=== PATIENT | female | born 1970 | race Caucasian/White ===

== ENCOUNTER → 2018-02-22 15:48 | Outpatient (CLI) | payer BC, SELFPAY ==
--- NOTE | 2018-02-22 | EMB_PTH ---
PATIENT: M[place] RIVER LOC: [facility] U#:[id number] AGE/SX: 55/F ROOM: RE02/22/[address]: JENNIE Barker : 1970 BED: DIS: SPEC #: [id number] RECD: 02/22/18 15:35 STATUS: TRESSA ADELITA #: [id number] FRANCIA: 02/22/18 00:[address]: Sachi Miller NP DEPT: SURGICAL PATHOLOGY RECD BY: Myke Bronson ENTERED: 02/23/18 08:49 SP TYPE: ENDOM BX/C BARBARA DR: Dr. Bryant Vincent MD Tissues: Endometrium, NOS Procedures: Surgery Specimen Level IV HEADER OPERATION: Endometrial biopsy PRE-OP DIAGNOSIS: Abnormal uterine bleeding TISSUE SUBMITTED: Endometrial biopsy MICROSCOPIC DIAGNOSIS Endometrial biopsy: Scant superficial fragments of benign endometrial tissue and blood clots. Desquamated benign endocervical epithelial cells. See comment. SJ:dedrick 02/24/18 COMMENT Clinical correlation and appropriate follow up are necessary. Repeat biopsy is suggested if clinically indicated. MICROSCOPIC DESCRIPTION Slides are reviewed. GROSS DESCRIPTION Received is one container labeled with the patient's name and not further designated. The specimen consists of multiple fragments of hemorrhagic soft tissue that in aggregate measure 1 x 0.5 x 0.1 cm. The specimen is totally submitted in one cassette. / JOSEE:dedrick 02/23/18 TC:4 CPT: 80388
[2018-02-28 14:39] LABS: HPV APTIMA, High Risk Negative (Negative)
== END ==
PROVIDERS: Family Provider Internal Medicine; PCP Internal Medicine; Referring Provider Nurse Practitioner Women's Health; Visit Provider Nurse Practitioner Women's Health
DX: N93.9 Abnormal uterine and vaginal bleeding, unspecified (principal); Z12.4 Encounter for screening for malignant neoplasm of cervix
CPT/HCPCS: 88175; 88305; G0145

== ENCOUNTER → 2018-03-03 12:45 | Outpatient (CLI) | payer BC, SELFPAY ==
--- NOTE | 2018-03-03 12:48 | US_ITS ---
STUDY: ULTRASOUND OF THE FEMALE PELVIS - COMPLETE REASON FOR EXAM: Female, 48 years old. MENORRHAGIA X 2 MONTHS TECHNIQUE: Transvaginal and endovaginal COMPARISON: None. FINDINGS: The uterus is anteverted and is in a midline position. The uterus measures 2.6 x 6.8 x 5.4 cm. Normal uterine cervix. The endometrium measures 13 mm in thickness, and is hyperechoic. There is no demonstrated endometrial mass. Fibroids in uterus measuring 18 x 21 and 17 mm. Another fibroid measures 13 x 8 x 8 mm 15 x 11 x 11 mm. I.U.D. - The patient does not have an I.U.D. The right ovary is visualized. The right ovary measures 2.9 x 3.2 x 1.7 cm. Prominent right ovarian follicle measuring 20 x 16 mm. There is no visualized right adnexal mass or complex lesion. There is normal arterial and normal venous vascularity. The left ovary is visualized. The left ovary measures 3.7 x 3.7 x 1.6 cm. There is no left ovarian cyst or ovarian mass. There is no visualized left adnexal mass or complex lesion. There is normal arterial and normal venous vascularity. There is minimal fluid in the cul-de-sac. US/Pelvic (Non ) IMPRESSION: Fibroid uterus Electronically Signed: Moises Keith MD at 22:33 EDT , Service support ,
--- NOTE | 2018-03-03 12:48 | US_ITS ---
STUDY: ULTRASOUND OF THE FEMALE PELVIS - COMPLETE REASON FOR EXAM: Female, 48 years old. MENORRHAGIA X 2 MONTHS TECHNIQUE: Transvaginal and endovaginal COMPARISON: None. FINDINGS: The uterus is anteverted and is in a midline position. The uterus measures 2.6 x 6.8 x 5.4 cm. Normal uterine cervix. The endometrium measures 13 mm in thickness, and is hyperechoic. There is no demonstrated endometrial mass. Fibroids in uterus measuring 18 x 21 and 17 mm. Another fibroid measures 13 x 8 x 8 mm 15 x 11 x 11 mm. I.U.D. - The patient does not have an I.U.D. The right ovary is visualized. The right ovary measures 2.9 x 3.2 x 1.7 cm. Prominent right ovarian follicle measuring 20 x 16 mm. There is no visualized right adnexal mass or complex lesion. There is normal arterial and normal venous vascularity. The left ovary is visualized. The left ovary measures 3.7 x 3.7 x 1.6 cm. There is no left ovarian cyst or ovarian mass. There is no visualized left adnexal mass or complex lesion. There is normal arterial and normal venous vascularity. There is minimal fluid in the cul-de-sac. US/Transvaginal Non- IMPRESSION: Fibroid uterus Electronically Signed: Moises Keith MD at 22:33 EDT , Service support ,
== END ==
PROVIDERS: Family Provider Internal Medicine; PCP Internal Medicine; Referring Provider Obstetrics & Gynecology; Visit Provider Obstetrics & Gynecology
DX: N92.0 Excessive and frequent menstruation with regular cycle (principal); D25.9 Leiomyoma of uterus, unspecified
CPT/HCPCS: 76830; 76856; 93976

== ENCOUNTER → 2018-03-30 11:54 | Outpatient (CLI) | payer BC, SELFPAY ==
--- NOTE | 2018-03-30 11:56 | BI_ITS ---
MAMMOGRAPHY - BILATERAL SCREENING REASON FOR EXAM: Female, 48 years old. Routine annual screening examination. PERTINENT HISTORY: Non-contributory. TECHNIQUE: Digital bilateral breast susy (3D mammographic acquisition) in the CC and MLO projections. 2-D mediolateral oblique (MLO) and craniocaudad (CC) views of both breasts were obtained. CAD: Full Field Digital Mammography with Computer Added Detection was performed. COMPARISON: Comparison is made with prior outside examination dated September 03, 2016. FINDINGS: Breast Composition: The breasts are extremely dense, which lowers the sensitivity of mammography. There are no dominant masses or suspicious calcifications. No other significant abnormalities are identified. There has been no significant change since the prior study. BI/SCREENING MAMM (CAD), BILAT IMPRESSION: Stable bilateral screening mammogram. Yearly follow-up mammogram recommended. (A) ASSESSMENT CATEGORY: BIRADS Category 1: Negative. A letter regarding these results will be sent to the patient by the facility within 30 days. Approximately 10% of breast cancers are not detected by mammography. A normal mammogram should not delay biopsy of a clinically suspicious abnormality. [id number] Electronically Signed: Emanuel Ramos MD at 11:28 EST Tel [phone], Service support ,
== END ==
PROVIDERS: Family Provider Internal Medicine; PCP Internal Medicine; Referring Provider Obstetrics & Gynecology; Visit Provider Obstetrics & Gynecology
DX: Z12.31 Encounter for screening mammogram for malignant neoplasm of breast (principal)
CPT/HCPCS: 77063; 77067

== ENCOUNTER → 2019-02-26 12:56 | Outpatient (CLI) | payer BC, SELFPAY ==
[2019-02-26 08:07] VITALS: BMI 25.2
[2019-03-01 16:03] LABS: HPV APTIMA, High Risk Negative (Negative)
== END ==
PROVIDERS: Family Provider Internal Medicine; PCP Internal Medicine; Referring Provider Nurse Practitioner Women's Health; Visit Provider Nurse Practitioner Women's Health
DX: R87.610 Atypical squamous cells of undetermined significance on cytologic smear of cervix (ASC-US) (principal)
CPT/HCPCS: 87624; 88175; G0145

== ENCOUNTER → 2019-03-30 10:16 | Outpatient (CLI) | payer BC, SELFPAY ==
[2019-02-26 08:07] VITALS: BMI 25.2
--- NOTE | 2019-03-30 10:17 | BI_ITS ---
MAMMOGRAPHY - BILATERAL SCREENING REASON FOR EXAM: Female, 49 years old. Routine annual screening examination. PERTINENT HISTORY: Non-contributory. Remote right breast biopsy. TECHNIQUE: Digital bilateral breast lalitha (3D mammographic acquisition) in the CC and MLO projections. 2-D mediolateral oblique (MLO) and craniocaudad (CC) views of both breasts were obtained. CAD: Full Field Digital Mammography with Computer Added Detection was performed. COMPARISON: Comparison is made with prior study dated March 30, 2018. FINDINGS: Breast Composition: The breasts are extremely dense, which lowers the sensitivity of mammography. There are no dominant masses or suspicious calcifications. No other significant abnormalities are identified. There has been no significant change since the prior study. BI/SCREEN MAMM (CAD) W/LALITHA BILAT IMPRESSION: Stable bilateral screening mammogram. Yearly follow-up mammogram recommended. (A) ASSESSMENT CATEGORY: BIRADS Category 1: Negative. A letter regarding these results will be sent to the patient by the facility within 30 days. Approximately 10% of breast cancers are not detected by mammography. A normal mammogram should not delay biopsy of a clinically suspicious abnormality. [id number] Electronically Signed: Emanuel Ramos, at 11:36 EST , Service support ,
== END ==
PROVIDERS: Family Provider Internal Medicine; PCP Internal Medicine; Referring Provider Nurse Practitioner Women's Health; Visit Provider Nurse Practitioner Women's Health
DX: Z12.31 Encounter for screening mammogram for malignant neoplasm of breast (principal)
CPT/HCPCS: 77063; 77067

== ENCOUNTER → 2019-11-13 11:53 | Outpatient (CLI) | payer BC, SELFPAY ==
[2019-11-13 11:11] VITALS: BMI 25.2
[2019-11-13 15:29] LABS: Absolute Lymphocyte Count 1.67 X10^3/uL (0.83-4.51); Basophil# 0.04 X10^3/uL; Basophil% 0.5 % (0-1); Eosinophil# 0.28 X10^3/uL; Eosinophils% 3.7 % (0-5); Hematocrit 38.9 % (37-47); Hemoglobin 12.8 g/dL (12.0-15.0); Lymphocyte # 1.67 X10^3/ul (4.0); Lymphocyte % 22.3 % (19-41); Mean Corp Hgb Conc 32.9 g/dL (32-36); Mean Corpuscular Hgb 31.6 pg (27.0-32.0); Mean Platelet Vol. 10.2 fl (6.2-12.0); Monocyte# 0.51 X10^3/uL; Monocyte% 6.8 % (0-10); NRBC Flagged by Analyzer 0 % (0-5); Neutrophil # 4.97 X10^3/uL (2.7-7.7); Neutrophil % 66.3 % (47-70); Platelet Count 329 K/mm3 (150-450); RBC Distribution Width CV 12.2 % (11.6-14.6); RBC Distribution Width SD 42.7 fl (35.1-43.9); Red Blood Count 4.05 M/mm3 (4.2-5.4); White Blood Count 7.5 K/mm3 (4.4-11.0)
[2019-11-13 15:47] LABS: ALB/GLOB Ratio 0.9 RATIO (0.9-2.4); AST(SGOT) 20 U/L (15-37); Alanine Aminotransfer ALT/SGPT 25 U/L (13-56); Albumin, Serum 3.6 g/dL (3.2-5.0); Alkaline Phosphatase 37 U/L (45-117); Anion Gap 8 (5-15); BUN 11 mg/dL (7-18); BUN/Creat Ratio 13.1 RATIO (10-20); Calcium,Total 8.9 mg/dL (8.5-10.1); Chloride 102 mmol/L (98-107); Cholesterol 234 mg/dL (200); Creatinine, Serum 0.84 mg/dL (0.55-1.02); EST Glomerular Filtration Rate 77 mL/min (>60); Est Glom Filt Rate - Afr Amer 93 mL/min (>60); Glucose 78 mg/dL (74-106); High Density Lipoprotein 77 mg/dL; Protein, Total 7.6 g/dL (6.4-8.2); Sodium Level 136 mmol/L (136-145); Triglycerides 120 mg/dL; Very Low Density Lipoprotein 24 mg/dL (5-40)
== END ==
PROVIDERS: PCP Internal Medicine; Referring Provider Internal Medicine; Visit Provider Internal Medicine
DX: Z00.00 Encounter for general adult medical examination without abnormal findings (principal)
CPT/HCPCS: 36415; 80053; 80061; 85025

== ENCOUNTER → 2020-03-03 08:43 | Outpatient (CLI) | payer BC, SELFPAY ==
[2020-03-03 08:39] VITALS: BMI 25.2
[2020-03-03 09:22] LABS: Absolute Neutrophil Count 3.6 X10^3/uL (2.0-7.7); Basophil# 0.06 X10^3/uL; Basophil% 0.9 % (0-1); Eosinophil# 0.46 X10^3/uL; Eosinophils% 6.9 % (0-5); Hemoglobin 13.3 g/dL (12.0-15.0); Lymphocyte % 31.3 % (19-41); Mean Corp Hgb Conc 32.4 g/dL (32-36); Mean Corpuscular Hgb 30.5 pg (27.0-32.0); Mean Platelet Vol. 9.8 fl (6.2-12.0); Monocyte# 0.46 X10^3/uL; Monocyte% 6.9 % (0-10); NRBC Flagged by Analyzer 0 % (0-5); Neutrophil # 3.61 X10^3/uL (2.7-7.7); Neutrophil % 53.7 % (47-70); Platelet Count 311 K/mm3 (150-450); RBC Distribution Width CV 11.8 % (11.6-14.6); Red Blood Count 4.36 M/mm3 (4.2-5.4); White Blood Count 6.7 K/mm3 (4.4-11.0)
[2020-03-03 09:45] LABS: Cholesterol 262 mg/dL (200); Glucose 84 mg/dL (74-106); High Density Lipoprotein 85 mg/dL; T4 Free Direct 1.05 ng/dL (0.76-1.46); Triglycerides 141 mg/dL; Very Low Density Lipoprotein 28 mg/dL (5-40)
[2020-03-06 15:14] LABS: HPV APTIMA, High Risk Negative (Negative)
== END ==
PROVIDERS: PCP Internal Medicine; Referring Provider Nurse Practitioner Women's Health; Visit Provider Nurse Practitioner Women's Health
DX: Z00.00 Encounter for general adult medical examination without abnormal findings (principal); E04.9 Nontoxic goiter, unspecified; Z13.29 Encounter for screening for other suspected endocrine disorder; Z12.4 Encounter for screening for malignant neoplasm of cervix; R53.83 Other fatigue
CPT/HCPCS: 36415; 80061; 82947; 84439; 84443; 85025; 87624; 88175; G0145

== ENCOUNTER → 2020-03-31 09:39 | Outpatient (CLI) | payer BC, SELFPAY ==
[2020-03-03 08:39] VITALS: BMI 25.2
--- NOTE | 2020-03-31 11:56 | US_ITS ---
STUDY: THYROID ULTRASOUND REASON FOR EXAM: Female, 50 years old. ENLARGED THYROID TECHNIQUE: Ultrasound evaluation of the thyroid was performed with real-time and static booth-scale imaging. COMPARISON: None. FINDINGS: RIGHT LOBE: The right lobe of the thyroid gland measures 4.8 cm x 1.6 cm x 1.2 cm. There is a homogeneous echotexture. There are no demonstrated solid, cystic or complex lesions. LEFT LOBE: The left lobe of the thyroid gland measures 4.3 cm x 1.3 cm x 1.0 cm. There is a homogeneous echotexture. There are no demonstrated solid, cystic or complex lesions. ISTHMUS: The isthmus measures 2 mm. The regional lymph nodes are normal. US/Thyroid IMPRESSION: Normal ultrasound examination of the thyroid. Electronically Signed: Emanuel Ramos, at 13:18 EST , Service support ,
--- NOTE | 2020-03-31 11:56 | BI_ITS ---
MAMMOGRAPHY - BILATERAL SCREENING REASON FOR EXAM: Female, 50 years old. Routine annual screening examination. PERTINENT HISTORY: Non-contributory. TECHNIQUE: Digital bilateral breast lalitha (3D mammographic acquisition) in the CC and MLO projections. 2-D mediolateral oblique (MLO) and craniocaudad (CC) views of both breasts were obtained. CAD: Full Field Digital Mammography with Computer Added Detection was performed. COMPARISON: Comparison is made with prior study of 03/30/2019 and 03/30/2018. FINDINGS: Breast Composition: The breasts are extremely dense, which lowers the sensitivity of mammography. There are no dominant masses or suspicious calcifications. No other significant abnormalities are identified. There has been no significant change since the prior study. BI/SCREEN MAMM (CAD) W/LALITHA BILAT IMPRESSION: Stable bilateral screening mammogram. Yearly follow-up mammogram recommended. (A) ASSESSMENT CATEGORY: BIRADS Category 1: Negative. A letter regarding these results will be sent to the patient by the facility within 30 days. Approximately 10% of breast cancers are not detected by mammography. A normal mammogram should not delay biopsy of a clinically suspicious abnormality. [id number] Electronically Signed: Emanuel Ramos, at 13:10 EST , Service support ,
== END ==
PROVIDERS: PCP Internal Medicine; Referring Provider Nurse Practitioner Women's Health; Visit Provider Nurse Practitioner Women's Health
DX: Z12.31 Encounter for screening mammogram for malignant neoplasm of breast (principal); E04.9 Nontoxic goiter, unspecified
CPT/HCPCS: 76536; 77063; 77067

== ENCOUNTER → 2020-05-19 09:26 | Outpatient (CLI) | payer BC, SELFPAY ==
[2020-04-03 14:28] VITALS: BMI 25.8
[2020-05-19 12:42] LABS: T4 Free Direct 0.86 ng/dL (0.76-1.46); Thyroid Stim Hormone (TSH) 2.09 uIU/mL (0.358-3.74)
== END ==
PROVIDERS: PCP Internal Medicine; Referring Provider Internal Medicine; Visit Provider Internal Medicine
DX: E03.9 Hypothyroidism, unspecified (principal)
CPT/HCPCS: 36415; 84439; 84443

== ENCOUNTER → 2020-11-21 09:42 | Outpatient (CLI) | payer BC, SELFPAY ==
[2020-11-21 09:17] VITALS: BMI 23.3
[2020-11-21 12:23] LABS: Absolute Lymphocyte Count 1.49 X10^3/uL (0.83-4.51); Absolute Neutrophil Count 3.2 X10^3/uL (2.0-7.7); Basophil# 0.08 X10^3/uL; Basophil% 1.5 % (0-1); Eosinophils% 5.5 % (0-5); Hematocrit 39.4 % (37-47); Hemoglobin 13.1 g/dL (12.0-15.0); Lymphocyte # 1.49 X10^3/ul (0.83-4.51); Lymphocyte % 27.2 % (19-41); Mean Corp Hgb Conc 33.2 g/dL (32-36); Mean Corpuscular Hgb 31.3 pg (27.0-32.0); Mean Platelet Vol. 9.9 fl (6.2-12.0); Monocyte# 0.39 X10^3/uL; Monocyte% 7.1 % (0-10); NRBC Flagged by Analyzer 0 % (0-5); Neutrophil # 3.21 X10^3/uL (2.7-7.7); Neutrophil % 58.5 % (47-70); Platelet Count 315 K/mm3 (150-450); RBC Distribution Width CV 12.4 % (11.6-14.6); RBC Distribution Width SD 43.1 fl (35.1-43.9); Red Blood Count 4.19 M/mm3 (4.2-5.4); White Blood Count 5.5 K/mm3 (4.4-11.0)
[2020-11-21 12:44] LABS: ALB/GLOB Ratio 1.4 RATIO (0.9-2.4); AST(SGOT) 14 U/L (15-37); Alanine Aminotransfer ALT/SGPT 28 U/L (13-56); Albumin, Serum 4.3 g/dL (3.2-5.0); Alkaline Phosphatase 42 U/L (45-117); Anion Gap 7 (5-15); BUN 10 mg/dL (7-18); BUN/Creat Ratio 12.7 RATIO (10-20); Calcium,Total 8.9 mg/dL (8.5-10.1); Chloride 102 mmol/L (98-107); Cholesterol 203 mg/dL (200); Creatinine, Serum 0.79 mg/dL (0.55-1.02); EST Glomerular Filtration Rate 83 mL/min (>60); Est Glom Filt Rate - Afr Amer 100 mL/min (>60); Glucose 84 mg/dL (74-106); High Density Lipoprotein 75 mg/dL; Potassium 4.2 mmol/L (3.5-5.1); Protein, Total 7.3 g/dL (6.4-8.2); Sodium Level 136 mmol/L (136-145); Triglycerides 56 mg/dL; Very Low Density Lipoprotein 11 mg/dL (5-40)
== END ==
PROVIDERS: PCP Internal Medicine; Referring Provider Internal Medicine; Visit Provider Internal Medicine
DX: Z00.00 Encounter for general adult medical examination without abnormal findings (principal)
CPT/HCPCS: 36415; 80053; 80061; 85025

== ENCOUNTER 2021-06-23 08:00 | Outpatient (CLI) | payer BC, SELFPAY ==
--- NOTE | 2021-06-23 08:07 | BI_ITS ---
MAMMOGRAPHY - BILATERAL SCREENING REASON FOR EXAM: Female, 51 years old. Routine annual screening examination. PERTINENT HISTORY: Non-contributory. TECHNIQUE: Digital bilateral breast lalitha (3D mammographic acquisition) in the CC and MLO projections. 2-D mediolateral oblique (MLO) and craniocaudad (CC) views of both breasts were obtained. CAD: Full Field Digital Mammography with Computer Added Detection was performed. COMPARISON: Comparison is made with prior study of 03/31/2020 and 03/30/2019. FINDINGS: Breast Composition: The breasts are extremely dense, which lowers the sensitivity of mammography. There are no dominant masses or suspicious calcifications. Stable small benign-appearing bilateral axillary lymph nodes. No other significant abnormalities are identified. There has been no significant change since the prior study. BI/SCRN MAMM (CAD)W/LALITHA BILAT IMPRESSION: Stable bilateral screening mammogram. Yearly follow-up mammogram recommended. (A) ASSESSMENT CATEGORY: BIRADS Category 2: Benign. A letter regarding these results will be sent to the patient by the facility within 30 days. Approximately 10% of breast cancers are not detected by mammography. A normal mammogram should not delay biopsy of a clinically suspicious abnormality. [id number] Electronically Signed: Emanuel Ramos MD at 9:14 EST ,
== END 2021-06-23 23:59 | disposition short-term general hospital (02) ==
PROVIDERS: PCP Internal Medicine; Referring Provider Nurse Practitioner Women's Health; Visit Provider Nurse Practitioner Women's Health
DX: Z12.31 Encounter for screening mammogram for malignant neoplasm of breast (principal)
CPT/HCPCS: 77063; 77067

== ENCOUNTER → 2021-10-06 | Outpatient (CLI) | payer BC, SELFPAY ==
--- NOTE | 2021-10-07 14:08 | PFT ---
INTRODUCTION: The patient is a 51-year-old female that presents for pulmonary function studies secondary to a diagnosis of asthma. Respiratory therapy reported good patient effort. Bronchodilators were used during testing. INTERPRETATION: Forced expiration spirometry demonstrates the presence of a moderate large airways obstructive ventilatory defect. There was a significant response to aerosolized bronchodilators. Spirograms are of good quality but do not plateau indicating slow emptying of the lungs. Body plethysmography was performed and revealed an elevated RV to 187% of predicted, indicative of underlying air trapping. Diffusing capacity by single breath CO is within normal limits. IMPRESSION: Partially reversible moderate large airways obstructive ventilatory defect with associated air trapping.
== END | disposition home or self-care (01) ==
LOC: PSN 08:55
PROVIDERS: PCP Internal Medicine; Visit Provider Physician Assistant
DX: J45.901 Unspecified asthma with (acute) exacerbation (principal)
CPT/HCPCS: 94060; 94726; 94729

== ENCOUNTER → 2022-01-29 | Outpatient (CLI) | payer BC, SELFPAY ==
[2022-01-29 11:57] LABS: Absolute Lymphocyte Count 1.55 X10^3/uL (0.83-4.51); Absolute Neutrophil Count 3.1 X10^3/uL (2.0-7.7); Basophil# 0.08 X10^3/uL; Basophil% 1.4 % (0-1); Eosinophils% 10.5 % (0-5); Hematocrit 39.8 % (37-47); Hemoglobin 13.1 g/dL (12.0-15.0); Lymphocyte # 1.55 X10^3/ul (0.83-4.51); Lymphocyte % 27.1 % (19-41); Mean Corp Hgb Conc 32.9 g/dL (32-36); Mean Corpuscular Hgb 31.3 pg (27.0-32.0); Mean Platelet Vol. 10.1 fl (6.2-12.0); Monocyte# 0.38 X10^3/uL; Monocyte% 6.6 % (0-10); NRBC Flagged by Analyzer 0 % (0-5); Neutrophil # 3.11 X10^3/uL (2.7-7.7); Neutrophil % 54.2 % (47-70); Platelet Count 360 K/mm3 (150-450); RBC Distribution Width CV 12.5 % (11.6-14.6); RBC Distribution Width SD 43.6 fl (35.1-43.9); Red Blood Count 4.19 M/mm3 (4.2-5.4); White Blood Count 5.7 K/mm3 (4.4-11.0)
[2022-01-29 12:34] LABS: ALB/GLOB Ratio 1.2 RATIO (0.9-2.4); AST(SGOT) 15 U/L (15-37); Alanine Aminotransfer ALT/SGPT 23 U/L (13-56); Albumin, Serum 4.2 g/dL (3.2-5.0); Alkaline Phosphatase 50 U/L (45-117); Anion Gap 5 (5-15); BUN 7 mg/dL (7-18); BUN/Creat Ratio 8.5 RATIO (10-20); Calcium,Total 9.9 mg/dL (8.5-10.1); Chloride 103 mmol/L (98-107); Cholesterol 249 mg/dL (200); Creatinine, Serum 0.82 mg/dL (0.55-1.02); EST Glomerular Filtration Rate 78 mL/min (>60); Est Glom Filt Rate - Afr Amer 95 mL/min (>60); Globulin 3.6 g/dL (2.2-4.2); Glucose 85 mg/dL (74-106); High Density Lipoprotein 74 mg/dL; Potassium 4.2 mmol/L (3.5-5.1); Protein, Total 7.8 g/dL (6.4-8.2); Sodium Level 136 mmol/L (136-145); Triglycerides 69 mg/dL; Very Low Density Lipoprotein 14 mg/dL (5-40)
== END | disposition home or self-care (01) ==
LOC: BIMLAB 08:34
PROVIDERS: PCP Internal Medicine; Visit Provider Internal Medicine
DX: Z00.00 Encounter for general adult medical examination without abnormal findings (principal)
CPT/HCPCS: 36415; 80053; 80061; 85025

== ENCOUNTER → 2022-06-28 | Outpatient (CLI) | payer BC, SELFPAY ==
[2022-07-05 23:20] LABS: HPV APTIMA, High Risk Negative (Negative)
== END | disposition home or self-care (01) ==
LOC: LABSPEC 13:13
PROVIDERS: PCP Internal Medicine; Visit Provider Nurse Practitioner Women's Health
DX: Z12.4 Encounter for screening for malignant neoplasm of cervix (principal)
CPT/HCPCS: 87624; 88175; G0145

== ENCOUNTER → 2022-07-13 | Outpatient (CLI) | payer BC, SELFPAY ==
--- NOTE | 2022-07-13 08:36 | BI_ITS ---
MAMMOGRAPHY - BILATERAL SCREENING REASON FOR EXAM: Female, 52 years old. Routine annual screening examination. PERTINENT HISTORY: Non-contributory. TECHNIQUE: Digital bilateral breast lalitha (3D mammographic acquisition) in the CC and MLO projections. 2-D mediolateral oblique (MLO) and craniocaudad (CC) views of both breasts were obtained. CAD: Full Field Digital Mammography with Computer Added Detection was performed. COMPARISON: Comparison is made with prior study dated 06/23/2021 and 03/31/2020. FINDINGS: Breast Composition: The breasts are extremely dense, which lowers the sensitivity of mammography. There are no dominant masses or suspicious calcifications. No other significant abnormalities are identified. There has been no significant change since the prior study. BI/SCRN MAMM (CAD)W/LALITHA BILAT IMPRESSION: Stable bilateral screening mammogram. Yearly follow-up mammogram recommended. (A) ASSESSMENT CATEGORY: BIRADS Category 1: Negative. A letter regarding these results will be sent to the patient by the facility within 30 days. Approximately 10% of breast cancers are not detected by mammography. A normal mammogram should not delay biopsy of a clinically suspicious abnormality. [id number] Electronically Signed: Emanuel Ramos MD at 11:03 EST ,
== END | disposition home or self-care (01) ==
LOC: OPBI 08:33
PROVIDERS: PCP Internal Medicine; Visit Provider Internal Medicine
DX: Z12.31 Encounter for screening mammogram for malignant neoplasm of breast (principal)
CPT/HCPCS: 77063; 77067

== ENCOUNTER → 2023-02-11 | Outpatient (CLI) | payer BC, SELFPAY ==
[2023-02-11 10:24] LABS: Absolute Lymphocyte Count 2.06 X10^3/uL (0.83-4.51); Basophil# 0.07 X10^3/uL; Basophil% 1.1 % (0-1); Eosinophils% 6.6 % (0-5); Hematocrit 40.8 % (37-47); Lymphocyte # 2.06 X10^3/ul (0.83-4.51); Lymphocyte % 33.8 % (19-41); Mean Corp Hgb Conc 31.9 g/dL (32-36); Mean Corpuscular Hgb 30.4 pg (27.0-32.0); Mean Corpuscular Volume 95.6 fL (81-99); Mean Platelet Vol. 10.3 fl (6.2-12.0); Monocyte# 0.54 X10^3/uL; Monocyte% 8.9 % (0-10); NRBC Flagged by Analyzer 0 % (0-5); Neutrophil # 3.02 X10^3/uL (2.7-7.7); Neutrophil % 49.4 % (47-70); Platelet Count 280 K/mm3 (150-450); RBC Distribution Width CV 12.1 % (11.6-14.6); RBC Distribution Width SD 42.2 fl (35.1-43.9); Red Blood Count 4.27 M/mm3 (4.2-5.4); White Blood Count 6.1 K/mm3 (4.4-11.0)
[2023-02-11 10:49] LABS: ALB/GLOB Ratio 1.1 RATIO (0.9-2.4); AST(SGOT) 11 U/L (15-37); Alanine Aminotransfer ALT/SGPT 20 U/L (13-56); Albumin, Serum 3.9 g/dL (3.2-5.0); Alkaline Phosphatase 47 U/L (45-117); Anion Gap 5 (5-15); BUN 9 mg/dL (7-18); BUN/Creat Ratio 10.6 RATIO (10-20); Calcium,Total 9.1 mg/dL (8.5-10.1); Chloride 107 mmol/L (98-107); Cholesterol 247 mg/dL (200); Creatinine, Serum 0.85 mg/dL (0.55-1.02); EST Glomerular Filtration Rate 75 mL/min (>60); Est Glom Filt Rate - Afr Amer 91 mL/min (>60); Globulin 3.5 g/dL (2.2-4.2); Glucose 84 mg/dL (74-106); High Density Lipoprotein 77 mg/dL; Potassium 3.8 mmol/L (3.5-5.1); Protein, Total 7.4 g/dL (6.4-8.2); Sodium Level 139 mmol/L (136-145); Triglycerides 86 mg/dL; Very Low Density Lipoprotein 17 mg/dL (5-40)
== END | disposition home or self-care (01) ==
LOC: MTLAB 07:06
PROVIDERS: PCP Internal Medicine; Referring Provider Internal Medicine; Visit Provider Internal Medicine
DX: Z00.00 Encounter for general adult medical examination without abnormal findings (principal); E78.5 Hyperlipidemia, unspecified
CPT/HCPCS: 36415; 80053; 80061; 85025

== ENCOUNTER → 2025-01-04 | Outpatient (CLI) | payer BC, SELFPAY ==
--- OUTSIDE RECORDS SUMMARY | 2025-01-04 08:54 | XMS RPT_ITS | CCD ---
Author Organization [facility] Care Team Providers Care Websphere Commerce Architect Name Role Phone Dr. Bryant Vincent Primary Care Provider [phone] Dr. Bryant Vincent Referring Provider [phone] Angela KISS MIXER, JENNIE Karimi Attending Provider [phone] ESTHER Hung Attending Provider Unavailab ESTHER Meeks Other Provider Unavailable Dr. Leighton Rodriguez Attending Provider [phone] Dr. Bryant Vincent Primary Care Provider [phone] ESTHER Hung Referring Provider Unavailab Dr. Bryant Verma Attending Provider [phone] Dr. Bryant Vincent Referring Provider [phone] Dr. Bryant Vincent Primary Care Provider [phone] Dr. Bryant Vincent Referring Provider [phone] JENNIE Miller NP Attending Provider [phone] Dr. Bryant Vincent MD Referring Provider [phone] Aleisha Knight CNM Attending Provider [phone] Aleisha Knight Attending Unavailable Bryant Vincent Referring Unavailable Medications Current Medications Medication Drug Class(es) Dates Sig (Normalized) Sig (Original) [id number] 200 actuat albuterol 0.09 mg/actuat metered dose inhaler (20 sources) beta2-Adrenergic Agonist Start: 05-25-2023 take 2 puff(s) by mouth every six hours Albuterol Sulfate 90 mcg/actuation HFA aerosol inhaler Active 0 .ROUTE .COMPLEX 25.5 May 25, 2023 2:01pm inhale 2 puffs by mouth and INTO THE LUNGS every 6 hours if needed wheezing or shortness of breath Start: 09-28-2021 take 1 puff(s) by in halation every six hours Albuterol Sulfate (Ventolin Hfa) 90 mcg/actuation HFA aerosol inhaler Active 2 PUFF INHALATION EVERY 6 HOURS September 28, 2021 11:02am Start: 04-30-2021 End: 09-28-2021 take 1 puff(s) by inhalation every six hours Albuterol Sulfate (Ventolin Hfa) 90 mcg/actuation HFA aerosol inhaler Discontinued 2 PUFF INHALATION EVERY 6 HOURS April 30, 2021 1:35pm September 28, 2021 11:02am Start: 08-08-2019 End: 05-25-2023 Albuterol Sulfate (Ventolin Hfa) 90 mcg/actuation HFA aerosol inhaler Discontinued 2 NMA INHALATION EVERY 6 HOURS as needed for shortness of breath or wheezing January 19, 2023 6:11pm May 25, 2023 2:01pm Start: 08-08-2019 End: 04-12-2022 take 1 puff(s) by inhalation every six hours Albuterol Sulfate (Ventolin Hfa) 90 mcg/actuation HFA aerosol inhaler Discontinued 2 PUFF INHALATION EVERY 6 HOURS April 30, 2021 12:35pm September 28, 2021 10:02am Start: 01-25-2018 End: 06-19-2018 take 1 puff(s) by inhalation every six hours Albuterol Sulfate Discontinued 2 PUFF INHALATION EVERY 6 HOURS 6.7 January 25, 2018 9:33am June 19, 2018 9:15am Start: 01-25-2018 End: 01-25-2018 albuterol sulfate Discontinu ed 2.5 MG Continuous Nebulization ONCE 6 January 25, 2018 8:53am January 25, 2018 9:31am Start: 01-25-2018 End: 06-19-2018 Albuterol Sulfate 90 mcg/act uation HFA aerosol inhaler Discontinued 2 NMA INHALATION EVERY 6 HOURS as needed for shortness of breath or wheezing 6.7 January 25, 2018 12:00am June 19, 2018 9:15am Start: 01-25-2018 End: 06-19-2018 take 1 puff(s) by inhalation every six hours Albuterol Sulfate Discontinued 2 PUFF INHALATION EVERY 6 HOURS 6.7 January 24, 2018 11:00pm June 19, 2018 8:15am fluticasone (10 sources) Corticosteroid Start: 04-22-2022 take 1 puff(s) by inhalation twice daily Fluticasone Propionate Active 2 PUFF INHALATION TWICE A DAY April 22, 2022 1:44pm administer with spacer Start: 12-14-2021 End: 04-22-2022 take 1 puff(s) by inhalation twice daily Fluticasone Propionate Discontinued 2 PUFF INHALATION TWICE A DAY December 14, 2021 11:18am April 22, 2022 1:44pm administer with spacer Start: 12-14-2021 take 1 puff(s) by in halation twice daily Fluticasone Propionate Active 2 PUFF INHALATION TWICE A DAY December 14, 2021 12:18pm administer with spacer Start: 09-28-2021 End: 12-14-2021 Fluticasone Propionate (Flov ent Hfa) 110 mcg/actuation HFA aerosol inhaler Discontinued 2 NMA INHALATION TWICE A DAY September 28, 2021 12:00am December 14, 2021 12:18pm administer with spacer Start: 09-28-2021 End: 12-14-2021 take 1 puff(s) by inhalation twice daily Fluticasone Propionate (Flovent Hfa) 110 mcg/actuation HFA aerosol inhaler Discontinued 2 PUFF INHALATION TWICE A DAY September 27, 2021 11:00pm December 14, 2021 11:18am administer with spacer Fluticasone Propionate 110 mcg/actuation HFA aerosol inhaler (5 sources) Start: 01-19-2023 Fluticasone Pr opionate 110 mcg/actuation HFA aerosol inhaler Active 2 NMA INHALATION TWICE A DAY January 19, 2023 6:11pm administer with spacer Start: 11-01-2022 End: 01-19-2023 Fluticasone Propionate 110 m cg/actuation HFA aerosol inhaler Discontinued 2 NMA INHALATION TWICE A DAY November 01, 2022 8:40am January 19, 2023 6:12pm administer with spacer Start: 08-09-2022 End: 11-01-2022 Fluticasone Propionate 110 m cg/actuation HFA aerosol inhaler Discontinued 2 NMA INHALATION TWICE A DAY August 09, 2022 5:26pm November 01, 2022 8:40am administer with spacer Start: 04-22-2022 End: 08-09-2022 Fluticasone Propionate 110 m cg/actuation HFA aerosol inhaler Discontinued 2 NMA INHALATION TWICE A DAY April 22, 2022 2:44pm August 09, 2022 5:26pm administer with spacer Start: 12-14-2021 End: 04-22-2022 Fluticasone Propionate 110 m cg/actuation HFA aerosol inhaler Discontinued 2 NMA INHALATION TWICE A DAY December 14, 2021 12:18pm April 22, 2022 2:44pm administer with spacer valACYclovir 500 mg oral tablet (20 sources) Herpesvirus Nucleoside Analog DNA Polymerase Inhibitor, Herpes Simplex Virus Nucleoside Analog DNA Polymerase Inhibitor, Herpes Zoster Virus Nucleoside Analog DNA Polymerase Inhibitor Start: 02-22-2018 End: 01-19-2023 take 1 tablet by mouth once daily Valacyclovir (Valtrex) 500 mg tablet Active 500 mg PO DAILY January 19, 2023 6:11pm Start: 06-06-2017 End: 01-25-2018 take 1 tablet by mouth once daily Valacyclovir 500 mg tablet Discontinued 500 mg PO daily June 06, 2017 1:00am January 25, 2018 9:28am Completed/Discontinued Medications Medication Drug Class(es) Dates Sig (Normalized) Sig (Original) amoxicillin 875 mg / clavulanate 125 mg oral tablet (5 sources) Penicillin-class Antibacterial Start: 01-25-2018 End: 06-19-2018 Amoxicillin-Pot Clavulanate 875-125 mg tablet Discontinued 1 {tbl} PO TWICE A DAY January 25, 2018 12:00am June 19, 2018 9:15am Start: 01-25-2018 End: 06-19-2018 take 1 tablet by mouth twice daily Amoxicillin-Pot Clavulanate Discontinued 1 TABLET PO TWICE A DAY January 24, 2018 11:00pm June 19, 2018 8:15am Desogestrel-Ethinyl Estradiol (15 sources) Progestin, Estrogen Start: 03-03-2020 End: 06-22-2021 take 0.15 tablet by mouth once daily Desogestrel-Ethinyl Estradiol (Apri) 0.15-0.03 mg tablet Discontinued 1 {tbl} PO daily March 03, 2020 8:39am June 22, 2021 9:08am Start: 03-03-2020 End: 06-22-2021 Desogestrel-Ethinyl Estradio l (Apri) 0.15-0.03 mg tablet Discontinued 1 TABLET PO daily March 03, 2020 7:39am June 22, 2021 8:08am Start: 03-03-2020 End: 06-22-2021 Desogestrel-Ethinyl Estradio l (Apri) 0.15-0.03 mg tablet Discontinued 1 TABLET PO daily March 03, 2020 8:39am June 22, 2021 9:08am Start: 02-26-2019 End: 03-03-2020 Desogestrel-Ethinyl Estradio l (Apri) 0.15-0.03 mg tablet Discontinued 1 TABLET PO daily February 26, 2019 8:03am March 03, 2020 8:40am Start: 02-26-2019 End: 03-03-2020 take 0.15 tablet by mouth once daily Desogestrel-Ethinyl Estradiol (Apri) 0.15-0.03 mg tablet Discontinued 1 {tbl} PO daily February 26, 2019 12:00am March 03, 2020 8:40am Start: 02-26-2019 End: 03-03-2020 Desogestrel-Ethinyl Estradio l (Apri) 0.15-0.03 mg tablet Discontinued 1 TABLET PO daily February 25, 2019 11:00pm March 03, 2020 7:40am Start: 02-26-2019 End: 03-03-2020 Desogestrel-Ethinyl Estradio l (Apri) 0.15-0.03 mg tablet Discontinued 1 TABLET PO daily February 26, 2019 12:00am March 03, 2020 8:40am Start: 06-19-2018 End: 02-26-2019 take 0.15 tablet by mouth once daily Desog-E.Estradiol/E.Estradiol (Kariva (28)) 0.15-0.02 mgx21 /0.01 mg x 5 tablet Discontinued 1 TABLET PO daily June 19, 2018 9:28am February 26, 2019 8:03am Start: 06-19-2018 End: 02-26-2019 take 0.15 tablet by mouth once daily Desog-E.Estradiol/E.Estradiol (Kariva (28)) 0.15-0.02 mgx21 /0.01 mg x 5 tablet Discontinued 1 {tbl} PO daily June 19, 2018 1:00am February 26, 2019 8:03am Start: 06-19-2018 End: 02-26-2019 take 0.15 tablet by mouth once daily Desog-E.Estradiol/E.Estradiol (Kariva (28)) 0.15-0.02 mgx21 /0.01 mg x 5 tablet Discontinued 1 TABLET PO daily June 19, 2018 12:00am February 26, 2019 7:03am Start: 06-19-2018 End: 02-26-2019 take 0.15 tablet by mouth once daily Desog-E.Estradiol/E.Estradiol (Kariva (28)) 0.15-0.02 mgx21 /0.01 mg x 5 tablet Discontinued 1 TABLET PO daily June 19, 2018 1:00am February 26, 2019 8:03am Levonorgestrel-Ethinyl Estrad (5 sources) Progestin, Estrogen, Progestin-containing Intrauterine Device Start: 03-13-2018 End: 06-19-2018 take 1 tablet by mouth once daily Levonorgestrel-Ethinyl Estrad (Aviane) 0.1-20 mg-mcg tablet Discontinued 1 TABLET PO daily March 13, 2018 10:43am June 19, 2018 9:28am Start: 03-13-2018 End: 06-19-2018 take 1 tablet by mouth once daily Levonorgestrel-Ethinyl Estrad (Aviane) 0.1-20 mg-mcg tablet Discontinued 1 {tbl} PO daily March 13, 2018 12:00am June 19, 2018 9:28am Start: 03-13-2018 End: 06-19-2018 take 1 tablet by mouth once daily Levonorgestrel-Ethinyl Estrad (Aviane) 0.1-20 mg-mcg tablet Discontinued 1 TABLET PO daily March 12, 2018 11:00pm June 19, 2018 8:28am Start: 03-13-2018 End: 06-19-2018 take 1 tablet by mouth once daily Levonorgestrel-Ethinyl Estrad (Aviane) 0.1-20 mg-mcg tablet Discontinued 1 TABLET PO daily March 13, 2018 12:00am June 19, 2018 9:28am Methylprednisolone (5 sources) Corticosteroid Start: 01-25-2018 End: 06-19-2018 Methylprednisolone Discontin ued 0 PO per package directions January 25, 2018 9:33am June 19, 2018 9:15am PO PER PKG DIR Start: 01-25-2018 End: 06-19-2018 Methylprednisolone 4 mg tabl ets,dose pack Discontinued 0 PO per package directions January 25, 2018 12:00am June 19, 2018 9:15am PO PER PKG DIR Start: 01-25-2018 End: 06-19-2018 Methylprednisolone Discontin ued 0 PO per package directions January 24, 2018 11:00pm June 19, 2018 8:15am PO PER PKG DIR Start: 01-25-2018 End: 06-19-2018 Methylprednisolone Discontin ued 0 PO per package directions January 25, 2018 12:00am June 19, 2018 9:15am PO PER PKG DIR Multivitamin (Multiple Vitamins) tablet (5 sources) Start: 05-27-2017 End: 06-22-2021 take 1 tablet by mouth once daily Multivitamin (Multiple Vitamins) tablet Discontinued 1 TABLET PO daily May 27, 2017 7:35am June 22, 2021 9:08am Start: 05-27-2017 End: 06-22-2021 Multivitamin (Multiple Vitam ins) tablet Discontinued 1 {tbl} PO daily May 27, 2017 1:00am June 22, 2021 9:08am Start: 05-27-2017 End: 06-22-2021 take 1 tablet by mouth once daily Multivitamin (Multiple Vitamins) tablet Discontinued 1 TABLET PO daily May 27, 2017 12:00am June 22, 2021 8:08am Start: 05-27-2017 End: 06-22-2021 take 1 tablet by mouth once daily Multivitamin (Multiple Vitamins) tablet Discontinued 1 TABLET PO daily May 27, 2017 1:00am June 22, 2021 9:08am naproxen sodium 220 mg oral tablet (5 sources) Nonsteroidal Anti-inflammatory Drug Start: 05-27-2017 End: 06-19-2018 take 1 tablet by mouth every twelve hours Naproxen Sodium (Aleve) 220 mg tablet Discontinued 220 mg PO Q12H May 27, 2017 1:00am June 19, 2018 9:15am nicotine 2 mg chewing gum (5 sources) Cholinergic Nicotinic Agonist Start: 06-22-2021 End: 01-19-2023 Nicotine (Polacrilex) (Nicorette) 2 mg gum Discontinued 2 mg BUCCAL Q2H June 22, 2021 1:00am January 19, 2023 5:52pm nitrofurantoin, macrocrystals 25 mg / nitrofurantoin, monohydrate 75 mg oral capsule (5 sources) Nitrofuran Antibacterial Start: 05-27-2017 End: 06-03-2017 take 1 capsule by mouth every twelve hours at mealtime Nitrofurantoin Monohyd/M-Cryst (Macrobid) 100 mg capsule Discontinued 1 NMA PO Q12H 14 7 May 27, 2017 1:00am June 02, 2017 1:00am June 03, 2017 1:11am administer with a meal/food; swallow whole; do not open, crush, dissolve , or chew Problems Active Problems Problem Classification Problem Date Documented Da te Episodic/Chronic Asthma (7 sources) Exacerbation of asthma; Translations: [Unspecified asthma with (acute) exacerbation] Chronic Cancer of cervix (5 sources) Atypical squamous cells of undetermined significance on cervical Papanicolaou smear; Translations: [Atypical squamous cells of undetermined significance on cytologic smear of cervix (ASC-US)] 06-28-2022 Episodic Comment on above: 2017 and 2018 ASCUS neg HPV. 2019 neg pap and HPV Disorders of lipid metabolism (4 sources) Hyperlipidemia; Translations: [Hyperlipidemia, unspecified] 01-30-2022 Chronic Other infections; including parasitic (6 sources) Personal history of other infectious and parasitic diseases; Translations: [History of COVID-19] Episodic Comment on above: July 2020 Screening and history of mental health and substance abuse codes (6 sources) Ex-smoker; Translations: [Personal history of nicotine dependence] Episodic Comment on above: Quit February 2021, u sed 20 years. Thyroid disorders (5 sources) Goiter; Translations: [Nontoxic goiter, unspecified] 06-21-2021 Chronic Comment on above: US and labs WNL Viral infection (5 sources) Genital herpes simplex; Translations: [Herpesviral infection of urogenital system, unspecified] 02-26-2019 Chronic Past or Other Problems Problem Classification Problem Date Documented Da te Episodic/Chronic Unclassified (4 sources) neck/back pain 12-21-2021 Results Test Name Value Interpretation Reference Range Facility Cigarette Catcher Office Visit Reporton 10-03-2024 Cigarette Catcher Office Visit Report [facility] [address], [address] [place] [address] OFFICE VISIT Date of Service: 10/03/24 MR#: [id number] Acct: [id number] Name: MORENO RIVER Rep #: [id number] : 1970 Provider: ASHLEY Krause ams Age/Sex: 54/F Location: [facility] Status: Signed Intake Vital Signs 01/19/23 17:53 10/03/24 13:11 10/03/24 13:15 Height 5 ft 3 in 5 ft 3 in 5 ft 3 in Weight: 151 lb BMI 26.7 BP 142/86 H Intake Visit 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 Bryant Vincent MD) Preventative health care Hyperlipidemia History of COVID-19 High cholesterol History of breast lump Asthma neck/back pain Thyroid disease Shoulder pain Surgical History History of cervical LEEP biopsy affecting care of mother, antepartum History of tubal ligation Family History Father Asthma Depression Mother Thyroid disorder High cholesterol Grandfather Myocardial infarction, Onset Age: 73 Sister Psychiatric care Daughter Psychiatric care Social History (Updated 10/03/24 @ 13:15 by Rae Duran) household members: spouse number of children: 4 current occupational status: employed current occupation: [place] sexually active: Yes Smoking Status: Former smoker Tobacco: How many years used: 20 Smokeless tobacco user: other second hand exposure: No alcohol intake: current alcohol intake frequency: a few times a week Alcohol type: beer and wine details: weekend substance use type: does not use caffeine: Yes what type of physical activity do you participate in: none frequency: 3-4 times per week duration: 15-30 minutes/day seatbelt use: always do you feel safe at home: Yes additional social history: - Daniel History 4 Elective abortions Hx Para 4 Spontaneous abortions Hx # Term Pregnancies Ectopic pregnancies Hx # Pregnancies Multiple births # of living children Past Pregnancies Del. Date Name GA/Weeks Outcome Route Bth Weight Infant Gen Labor Lgth Anesthesia Del Locatn Provider FOB Unknown 1990 Keeley Unknown 1992 Stephany Unknown 1994 Naveed Unknown 1997 John [facility] Encounter for routine gynecological examination Details: MORENO AME is a 54 year old who presents for annual exam. concerns with menopause. did have another period in jun and discussed sx and requirements to be in menopause. would like to try supplements and lifestyle changes for a few months before using hormone replacement. Last PAP: 2022 History of abnormal PAP: no Last mammogram: 2022 History of abnormal mammogram: Colon cancer screening: PCP Other preventative health care screenings: PCP Female Reproductive History Last Menstrual Period: 07/09/24 Cycle Length: >35 Bleeding Duration: 5 Questions: sexually active: Yes, dyspareunia: No and PCB: No Menopausal Symptoms: Yes hot flashes, Yes night sweats, Yes weight change, Yes mood changes, Yes difficulty concentrating and Yes change in libido ROS Const Constitutional: Reports system reviewed and no additional complaints, except as documented and night sweats Cardio Card: Reports system reviewed and no additional complaints, except as documented Resp Resp: Reports system reviewed and no additional complaints, except as documented GI GI: Reports system reviewed and no additional complaints, except as documented : Reports system reviewed and no additional complaints, except as documented and hot flashes; Denies difficulty voiding, dysuria or urinary frequency Skin Skin/Breast: Reports system reviewed and no additional complaints, except as documented Neuro Neuro: Reports system reviewed and no additional complaints, except as documented Psych Psych: Reports system reviewed and no additional complaints, except as documented, change in libido and difficulty concentrating; Denies anhedonia, anxiety or depression Exam Const General: cooperative, healthy appearing, comfortable and no acute distress Orientation: alert, awake and oriented x3 Neck Neck: normal visual inspection and full ROM Thyroid: thyroid normal Chest Breast inspection: normal inspection of the breasts and normal inspection of the axillae Breast palpation: normal palpation of the breasts and normal palpation of the a (more content not included)... Normal [facility] Cervical or vagninal specime n microscopic examination by cytology stain (reported asOrdered By: Sachi Miller on 06-28-2022 Cytology report Cyto stain Doc (Cvx/Vag) Comment . [facility] Comment on above: The Pap smear is a s creening test designed to aid in thedetection of premalignant and malignant conditions of theuterine cervix. It is not a diagnostic procedure andshould not be used as the sole means of detecting cervicalcancer. Both false-positive and false-negative reports dooccur. Detection in cervical specim en of any of human papilloma virus (HPV) 16, 18, 31, 33,Ordered By: Sachi Miller on 06-28-2022 HPV 16+18+31+33+35+39+45+51 +52+56+58+59+66+68 DNA Probe+sig amp Ql (Cvx) Negative Negative [facility] Comment on above: This nucleic acid am plification test detects fourteen high-risk HPV types (16,18,31,33,35,39,45,51,52,56,58,59,66,68)without differentiation. Laboratory - CytologyOrdered By: Sachi Miller on 06-28-2022 Color Straining Bag Washer Cyto stain Nom (Cvx/Vag) [ID] Comment . [facility] Comment on above: Ansley Hensley, Cytot echnologist (ASCP) Laboratory - Miscellaneous t estsOrdered By: Sachi Miller on 06-28-2022 Service comment (Unsp spec) [Interp] Comment . [facility] Comment on above: This liquid based Th inPrep(R) pap test was screened withthe use of an image guided system. Service comment (Unsp spec) [Interp] . . [facility] Liquid-based cerv Pap + CT/G C by JOLIE w reflex to high-risk HPV for ASCUSOrdered By: Sachi Miller on 06-28-2022 Cytology report Cyto stain.thin prep Doc (Cvx/Vag) Comment . [facility] Comment on above: Criteria not met, HP V Genotype not performed.Performed at: [facility] [id number] Director: Sherrell Garrett MD, Phone: [phone] at: =[facility] - [facility] [address] [id number] Director: Sherrell Garrett MD, Phone: [phone] No Panel InformationOrdered By: Sachi Miller on 06-28-2022 Pathology report final diagnosis Narrative Comment . [facility] Comment on above: NEGATIVE FOR INTRAEP ITHELIAL LESION OR MALIGNANCY. Absolute lymphocyte counton 01-29-2022 Lymphocytes Auto (Unsp spec) [#/Vol] 1.55 10*3/uL 0.83-4.51 [facility] Work Phone: Basophil percentageon 2021 Basophils/100 WBC (Bld) 1.4 % 0-1 [facility] Work Phone: Bilirubin [Mass/Vol] 0.40 mg/dL 0.20-1.00 [facility] Work Phone: Comment on above: For patients on eltr ombopag therapy, use of Dimension [place] TBIL is not recommended. Chloride [Moles/Vol] 103 mmol/L 98-107 [facility] Work Phone: Cholesterol [Mass/Vol] 249 mg/dL <200 [facility] Work Phone: Comment on above: <200 mg/dL Desirable 200-240 mg/dL Borderline >240 mg/dL High Risk Eosinophils/100 WBC (Bld) 10.5 % 0-5 [facility] Work Phone: Glucose [Mass/Vol] 85 mg/dL 74-106 [facility] Work Phone: Neutrophils (Bld) [#/Vol] 3.1 10*3/uL 2.0-7.7 [facility] Work Phone: Neutrophils/100 WBC (Bld) 54.2 % 47-70 [facility] Work Phone: Potassium [Moles/Vol] 4.2 mmol/L 3.5-5.1 [facility] Work Phone: Protein [Mass/Vol] 7.8 g/dL 6.4-8.2 [facility] Work Phone: Sodium [Moles/Vol] 136 mmol/L 136-145 [facility] Work Phone: Triglyceride [Mass/Vol] 69 mg/dL <199 [facility] Work Phone: Comment on above: The drugs N-Acetylcy steine and Metamizole may falsely depress this assay.Serum Triglycerides Reference Interval Normal <150 mg/dL Borderline high 150 - 199 mg/dL High 200 - 499 mg/dL Very High > or = 500 mg/dL WBC (Bld) [#/Vol] 5.7 10*3/uL 4.4-11.0 [facility] Work Phone: Blood erythrocytes count (nu mber/volume)on 01-29-2022 RBC (Bld) [#/Vol] 4.19 10*6/uL 4.2-5.4 [facility] Work Phone: Blood hemoglobin measurement (mass/volume)on 01-29-2022 Hemoglobin (Bld) [Mass/Vol] 13.1 g/dL 12.0-15.0 [facility] Work Phone: Blood lymphocytes/100 leukoc yteson 01-29-2022 Lymphocytes/100 WBC (Bld) 27.1 % 19-41 [facility] Work Phone: Blood monocytes/100 leukocyt eson 01-29-2022 Monocytes/100 WBC (Bld) 6.6 % 0-10 [facility] Work Phone: Blood platelet mean volumeon 01-29-2022 Platelet mean volume (Bld) [Entitic vol] 10.1 fL 6.2-12.0 [facility] Work Phone: Determination of erythrocyte mean corpuscular volume (MCV)on 01-29-2022 MCV (RBC) [Entitic vol] 95.0 fL 81-99 [facility] Work Phone: Hematocrit Auto (Bld) [Volum e fraction]on 01-29-2022 Hematocrit (Bld) [Volume fraction] 39.8 % 37-47 [facility] Work Phone: Laboratory - Chemistry and C hemistry - challengeon 01-29-2022 ALP [Catalytic activity/Vol] 50 U/L 45-117 [facility] Work Phone: ALT [Catalytic activity/Vol] 23 U/L 13-56 [facility] Work Phone: CO2 [Moles/Vol] 28.0 mmol/L 21.0-32.0 [facility] Work Phone: Globulin (S) [Mass/Vol] 3.6 g/dL 2.2-4.2 [facility] Work Phone: Urea nitrogen/Creatinine [Mass ratio] 8.5 mg/mg 10-20 [facility] Work Phone: Laboratory - Hematology and Cell countson 01-29-2022 Erythrocyte distribution width (RBC) [Entitic vol] 43.6 fL 35.1-43.9 [facility] Work Phone: Erythrocyte distribution width (RBC) [Ratio] 12.5 % 11.6-14.6 [facility] Work Phone: Immature granulocytes/100 WBC (Bld) 0.200 % 0.0-0.9 [facility] Work Phone: Comment on above: IG% - Immature Granu locytes (promyelocytes, myelocytes and metamyelocytes) > 1% indicates that a LEFT SHIFT is Present. MCH (RBC) [Entitic mass] 31.3 pg 27.0-32.0 [facility] Work Phone: Nucleated RBC/100 WBC (Bld) [Ratio] 0 % 0-5 [facility] Work Phone: MCHC Auto (RBC) [Mass/Vol]on 01-29-2022 MCHC (RBC) [Mass/Vol] 32.9 g/dL 32-36 [facility] Work Phone: No Panel Informationon 01-29 Estimated GFR (MDRD) Amer 95 mL/min >60 [facility] Work Phone: Comment on above: GFR Calc Estimated GFR (MDRD) Non-Af Amer 78 mL/min >60 [facility] Work Phone: Comment on above: Non- GFR Calc Platelets bldon 01-29-2022 Platelets (Bld) [#/Vol] 360 10*3/uL 150-450 [facility] Work Phone: Serum or plasma albumin rey urement (mass/volume)on 01-29-2022 Albumin [Mass/Vol] 4.2 g/dL 3.2-5.0 [facility] Work Phone: Serum or plasma albumin/glob ulin mass ratioon 01-29-2022 Albumin/Globulin [Mass ratio] 1.2 {ratio} 0.9-2.4 [facility] Work Phone: Serum or plasma calcium rey urement (mass/volume)on 01-29-2022 Calcium [Mass/Vol] 9.9 mg/dL 8.5-10.1 [facility] Work Phone: Serum or plasma cholesterol in HDL measurement (mass/volume)on 01-29-2022 Cholesterol in HDL [Mass/Vol] 74 mg/dL >40 [facility] Work Phone: Comment on above: The drugs N-Acetylcy steine and Metamizole may falsely depress this assay. Reference Range HDL <40 mg/dL Low HDL Cholesterol HDL >or= 60 mg/dL High HDL Cholesterol Serum or plasma cholesterol in VLDL measurement (mass/volume)on 01-29-2022 Cholesterol in VLDL [Mass/Vol] 14 mg/dL 5-40 [facility] Work Phone: Serum or plasma creatinine m easurement (mass/volume)on 01-29-2022 Creatinine [Mass/Vol] 0.82 mg/dL 0.55-1.02 [facility] Work Phone: Comment on above: The validity of the calculated GFR & GFRAA in patients over 70 years has not been determined. Clinical correlation is essential. Serum or plasma low density lipoprotein (LDL) cholesterol measurement (mass/volume)on 01-29-2022 Cholesterol in LDL [Mass/Vol] 161 mg/dL 0-130 [facility] Work Phone: Serum or plasma urea nitroge n measurement (mass/volume)on 01-29-2022 Urea nitrogen [Mass/Vol] 7 mg/dL 7-18 [facility] Work Phone: Thin prep Papanicolaou smear with manual screeningon 01-29-2022 Thin prep Papanicolaou smear with manual screening 15 U/L 15-37 [facility] Work Phone: Thin prep Papanicolaou smear with manual screening 5 5-15 [facility] Work Phone: Vital Signs Date Time Vital Sign Value Performing Clinician Prabhjoti jeremiah 10-03-2024 13:15-0400 Body height 160.[address] Bryant Vincent MD Work Phone: [facility] 10-03-2024 13:11-0400 Body mass index (BMI) [Ratio] 26.7 kg/m2 Dr. Bryant Vincent MD Work Phone: [facility] 10-03-2024 13:11-0400 Body weight 68.[address] Bryant Vincent MD Work Phone: [facility] 10-03-2024 13:11-0400 Diastolic blood pressure 86 mm[Hg] Dr. Bryant Vincent MD Work Phone: [facility] 10-03-2024 13:11-0400 Systolic blood pressure 142 mm[Hg] Dr. Bryant Vincent MD Work Phone: [facility] 06-28-2022 08:13-0500 Body height 160.[address] Bryant Vincent Work Phone: [facility] 06-28-2022 08:08-0500 Body mass index (BMI) [Ratio] 26 kg/m2 Dr. Bryant Vincent Work Phone: [facility] 06-28-2022 08:08-0500 Body weight 66.[address] Bryant Vincent Work Phone: [facility] 06-28-2022 08:08-0500 Diastolic blood pressure 76 mm[Hg] Dr. Bryant Vincent Work Phone: [facility] 06-28-2022 08:08-0500 Systolic blood pressure 120 mm[Hg] Dr. Bryant Vincent Work Phone: [facility] 01-29-2022 08:13-0400 Body height 160.[address] Bryant Vincent Work Phone: [facility] Work Phone: 01-29-2022 08:13-0400 Body mass index (BMI) [Ratio] 25.7 kg/m2 Dr. Bryant Vincnet Work Phone: [facility] Work Phone: 01-29-2022 08:13-0400 Body temperature 97 [degF] Dr. Bryant Vincent Work Phone: [facility] Work Phone: 01-29-2022 08:13-0400 Body weight 65.[address] Bryant Vincent Work Phone: [facility] Work Phone: 01-29-2022 08:13-0400 Diastolic blood pressure 70 mm[Hg] Dr. Bryant Vincent Work Phone: [facility] Work Phone: 01-29-2022 08:13-0400 Heart rate 77 /min Dr. Bryant Vincent Work Phone: [facility] Work Phone: 01-29-2022 08:13-0400 Respiratory rate 16 /min Dr. Bryant Vincent Work Phone: [facility] Work Phone: 01-29-2022 08:13-0400 SaO2% (BldA) [Mass fraction] 97 % Dr. Bryant Vincent Work Phone: [facility] Work Phone: 01-29-2022 08:13-0400 Systolic blood pressure 116 mm[Hg] Dr. Bryant Vincent Work Phone: [facility] Work Phone: 09-28-2021 10:42-0400 Body height 160.[address] Bryant Vincent Work Phone: [facility] Work Phone: 09-28-2021 10:42-0400 Body mass index (BMI) [Ratio] 26 kg/m2 Dr. Bryant Vincent Work Phone: [facility] Work Phone: 09-28-2021 10:42-0400 Body temperature 98.9 [degF] Dr. Bryant Vincent Work Phone: [facility] Work Phone: 09-28-2021 10:42-0400 Body weight 66.[address] Bryant Vincent Work Phone: [facility] Work Phone: 09-28-2021 10:42-0400 Diastolic blood pressure 84 mm[Hg] Dr. Bryant Vincent Work Phone: [facility] Work Phone: 09-28-2021 10:42-0400 Heart rate 89 /min Dr. Bryant Vincent Work Phone: [facility] Work Phone: 09-28-2021 10:42-0400 Respiratory rate 14 /min Dr. Bryant Vincent Work Phone: [facility] Work Phone: 09-28-2021 10:42-0400 SaO2% (BldA) [Mass fraction] 98 % Dr. Bryant Vincent Work Phone: [facility] Work Phone: 09-28-2021 10:42-0400 Systolic blood pressure 126 mm[Hg] Dr. Bryant Vincent Work Phone: [facility] Work Phone: 06-22-2021 07:09-0500 Body mass index (BMI) [Ratio] 25.9 kg/m2 Dr. Bryant Vincent Work Phone: [facility] Work Phone: 06-22-2021 07:09-0500 Body weight 66.[address] Bryant Vincent Work Phone: [facility] Work Phone: 06-22-2021 07:09-0500 Diastolic blood pressure 70 mm[Hg] Dr. Bryant Vincent Work Phone: [facility] Work Phone: 06-22-2021 07:09-0500 Systolic blood pressure 118 mm[Hg] Dr. Bryant Vincent Work Phone: [facility] Work Phone: Encounters Encounter Date Encounter Type Care Provider Facility Start: 10-03-2024 End: 10-03-2024 Patient encounter procedure Aleisha Knight [facility] Start: 10-03-2024 End: 10-03-2024 Patient encounter status Aleisha Knight [facility] Start: 10-03-2024 End: 10-03-[address] Bryant Vincent MD Work Phone: [facility] Work Phone: Start: 01-19-[address] Bryant Vincent MD Work Phone: [facility] Start: 07-13-2022 End: 07-13-[address] Bryant Vincent Work Phone: [facility] Work Phone: Start: 07-13-2022 End: 07-13-[address] Bryant Vincent Work Phone: [facility] Start: 06-28-2022 End: 06-28-[address] Bryant Vincent Work Phone: [facility] Work Phone: Start: 06-28-2022 End: 06-28-[address] Bryant Vincent Work Phone: [facility]-Laboratory, Specimen Start: 06-28-2022 End: 06-28-[address] Bryant Vincent Work Phone: [facility] Start: 01-29-2022 End: 01-29-[address] Bryant Vincent Work Phone: [facility] Work Phone: Start: 01-29-2022 End: 01-29-2022 Encounter for general adult medical examination without abnormal findings Dr. Bryant Vincent Work Phone: [facility] Start: 01-29-2022 End: 01-29-[address] Bryant Vincent Work Phone: [facility] Start: 10-07-2021 Non-patient / Non-visit Dr. Ruth Vincent Work Phone: [facility] Start: 10-06-2021 End: 10-06-[address] Bryant Vincent Work Phone: [facility]/Neurology Start: 09-28-2021 End: 09-28-[address] Bryant Vincent Work Phone: [facility] Start: 06-23-2021 End: 06-23-[address] Bryant Vincent Work Phone: [facility] Start: 06-22-2021 End: 06-22-[address] Bryant Vincent Work Phone: [facility] Start: 11-21-[address] Bryant Vincent Work Phone: [facility] Work Phone: Procedures Date Procedure Procedure Detail Performing Clinician Start: 07-13-2022 Screening mammography D dorie Vincent Work Phone: Start: 06-23-2021 Screening mammography D dorie Vincent Work Phone: Plan of Treatment Date Care Activity Detail Author Start: 06-28-2022 Patient referral [facility] Work Phone: MG Breast - bilateral Screening [facility] Work Phone: MG Breast - bilateral Screening [facility] Patient referral [facility] Work Phone: Payers Date Payer Category Payer Self-pay [id number] 2024 Unknown [id number] Unknown [id number] Unknown [id number] Social History Date Type Detail Facility Start: 09-28-2021 End: 06-28-2022 Tobacco smoking status CAIS Unknown if ever smoked [facility] Start: 1970 Sex Assigned At Female [facility] Start: 10-03-2024 [facility] Gender Identity Identifies as fe male gender (finding) [facility] Sexual Orientation Heterosexual (finding) [facility] Clinical Note 06-28-2022 Note Date & Type Note Facility 06-28-2022 Note [facility] Pap Smear Specimen Adequacy June 28, 2022 1:20pm Comment . Satisfactory for evaluation. Endocervical and/or squamous metaplasticcells (endocervical component) are present. Comment on above: Satisfactory for james luation. Endocervical and/or squamous metaplasticcells (endocervical component) are present. Clinical Note 06-28-2022 Note Date & Type Note Facility 06-28-2022 Note [facility] Pap Smear Specimen Adequacy June 28, 2022 1:20pm Comment . Satisfactory for evaluation. Endocervical and/or squamous metaplasticcells (endocervical component) are present. Comment on above: Satisfactory for james luation. Endocervical and/or squamous metaplasticcells (endocervical component) are present. Evaluation note Note Date & Type Note Facility Evaluation note Diagnosis Onset Date Asthma exacerbation acute Former smoker resolved History of COVID-19 resolved [facility] Work Phone: Evaluation note Note Date & Type Note Facility Evaluation note Diagnosis Onset Date Preventative health care acu te [facility] Work Phone: Evaluation note Note Date & Type Note Facility Evaluation note Diagnosis Onset Date ASCUS of cervix with negative high risk HPV acute Encounter for routine gyneco logical examination noneactive [facility] Work Phone: Evaluation note Note Date & Type Note Facility Evaluation note Diagnosis Onset Date Resolution Encounter for routine gynecological examination noneactive October 03, 2024 1:04pm [facility] Work Phone: Reason for referral (narrative) Note Date & Type Note Facility Reason for referral (narrative) No reason for referral information available [facility] Work Phone: Chief Complaint and Reason for Visit 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, SOB ASTHMA Asthma Reason for Visit Asthma exacerbation Former smoker History of COVID-19 Chief Complaint ASTHMA Asthma 1 Y FU Reason for Visit Preventative health care Chief Complaint Annual (JAVASCRIPT ENGINEER) Reason for Visit ASCUS of cervix with negative high risk HPV Encounter for routine gynecological examination Chief 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 Reason for Visit ASCUS of cervix with negative high risk HPV Encounter for routine gynecological examination Chief Complaint Admit Date Annual (JAVASCRIPT ENGINEER) October 03, 2024 1:04p m Reason for Visit Admit Date Encounter for routine gynecological exam ination October 03, 2024 1:04pm Family History No Family History Records Found Relationship Condition Age at Onset Recorded Date/T julio césar father Asthma Unknown Depression Unknown mother Disorder of thyroid Unknown High blood cholesterol Unknown grandfather Myocardial infarction 73 sister Psychiatric care Unknown daughter Psychiatric care Unknown Summary Purpose Advance Directives No Advanced Directives Records Found Additional Source Comments Goals (unrecognized section and content) Goals may be documented in a n alternate sectionGoals may be documented in an alternate sectionGoals may be documented in an alternate sectionGoals may be documented in an alternate sectionGoals may be documented in an alternate section Care Teams (unrecognized sec tion and content) Team Status: Active Member Role Status Dates Dr. Bryant Vincent MD Family Provider Active Dr. Bryant Vincent MD Primary Care Provider Active Team Status: Inactive Member Role Status Dates Dr. Bryant Vincent MD Primary Care Provider, Refer ring Provider Active Sachi Miller KISS [employer]ER, [employer]-C Attending Provider Active Team Status: Inactive Member Role Status Dates Dr. Bryant Vincent MD Primary Care Provider Active Sachi Miller NP, [employer]-C Attending Provider Active Team Status: Inactive Member Role Status Dates Dr. Bryant Vincent MD Primary Care Provider, Atten ding Provider Active Team Status: Inactive Member Role Status Dates Dr. Bryant Vincent MD Referring Provider Active Start: October 03, 2024 End: October 03, 2024 Aleisha Knight CNM Attending Provider Active S tart: October 03, 2024 End: October 03, 2024 INFORMATION SOURCE (unrecogn ized section and content) DATE CREATED AUTHOR 10/04/2024 [facility] FOR RECORDS PERTAINING TO PATIENTS WHO ARE OR HAVE BEEN ENROLLED IN A CHEMICAL DEPENDENCY/SUBSTANCEABUSE PROGRAM, SOME INFORMATION MAY BE OMITTED. This clinical summary was aggregated from multiple sources. Caution should be exercised in using it in the provision of clinical care. This summary normalizes information from multiple sources, and as a consequence, information in this document may materially change the coding, format and clinical context of patient data. In addition, data may be omitted in some cases. CLINICAL DECISIONS SHOULD BE BASED ON THE PRIMARY CLINICAL RECORDS. [employer] [facility]. provides no warranty or guarantee of the accuracy or completeness of information in this document.
[2025-01-04 12:52] LABS: AST(SGOT) 16 U/L (<=31); Alanine Aminotransfer ALT/SGPT 14 U/L (<=34); Albumin, Serum 4.6 g/dL (3.5-5.0); Alkaline Phosphatase 47 U/L (35-104); Anion Gap 11 (5-15); BUN 12 mg/dL (4-19); BUN/Creat Ratio 15.5 RATIO (10-20); Calcium,Total 9.7 mg/dL (7.6-11.0); Carbon Dioxide 25.8 mmol/L (21.0-32.0); Chloride 98 mmol/L (98-108); Globulin 2.7 g/dL (2.2-4.2); Glucose 88 mg/dL (70-99); Potassium 3.9 mmol/L (3.3-5.1)
== END | disposition home or self-care (01) ==
PROVIDERS: Referring Provider Advanced Practice Midwife; Visit Provider Advanced Practice Midwife
DX: N95.1 Menopausal and female climacteric states (principal)
CPT/HCPCS: 36415; 80053